=== PATIENT | male | born 1960 | race African-American/Black ===

== ENCOUNTER 2021-01-29 22:55 | Observation (INO) ==
[2021-01-30] MEDS ORDERED: ONDANSETRON 4 MG/2 ML VIAL IV STA (00:40)
[2021-01-30] MEDS ORDERED: ASPIRIN 325 MG TABLET PO STA (00:40)
[2021-01-30 01:42] LABS: Basophils # 0.1 10*3/uL (0.0-0.2); Basophils % 1.3 % (0.0-0.8); Eosinophils # 0.1 10*3/uL (0.0-0.87); Hematocrit 50.2 VOL% (42.0-52.0); Hemoglobin 16.9 GM/DL (14.0-18.0); Immature Granulocytes % 0.4 %; Immature Granulocytes Absolute 0.02 #; Lymphocytes # 1.2 10*3/uL (1.4-4.0); Lymphocytes % 26.7 % (21.2-54.2); Mean Corpuscular HGB Conc 33.7 GM/DL (32-36); Mean Corpuscular Volume 96.2 FL (87-102); Mean Platelet Volume 10.9 FL (9.6-12.0); Monocytes % 12.4 % (1.7-12.7); Neutrophils % 57.2 % (38.7-73.9); Platelet Count 160 T/CUMM (130-400); Red Blood Count 5.22 MC/CUMM (3.8-5.5); Red Cell Distribution Width 13.3 % (9.3-17.3); White Blood Count 4.5 T/CUMM (4-12)
[2021-01-30 02:00] LABS: INR 1.1; PT Patient Result 12.5 SECS (10.5-12.0); Partial Thromboplastin Time 29.4 SECS (23.9-33.8)
[2021-01-30 02:16] LABS: Bilirubin,Total 0.8 MG/DL (0.2-1.0); Calcium 8.4 MG/DL (8.5-10.1); Osmolality,Calculated 279.4 MOS/KG (273-304); Potassium 4.1 MMOL/L (3.5-5.1); Total Protein 8.1 G/DL (6.4-8.2)
[2021-01-30] MEDS ORDERED: ONDANSETRON 4 MG/2 ML VIAL IV PRN (03:24)
[2021-01-30] MEDS ORDERED: NICOTINE 21 MG/24 HR PATCH TRANSDERM PRN (03:24)
[2021-01-30] MEDS ORDERED: chlordiazePOXIDE 25 MG CAPSULE PO PRN (03:24)
[2021-01-30] MEDS ORDERED: GLUCAGON 1 MG VIAL IM PRN (03:24)
[2021-01-30] MEDS ORDERED: DEXTROSE 50% 25 GM/50 ML VIAL IV PRN (03:24)
[2021-01-30] MEDS ORDERED: diphenhydrAMINE CAP 25 MG CAPSULE PO PRN (03:24)
[2021-01-30] MEDS ORDERED: ACETAMINOPHEN 325 MG TABLET PO PRN (03:24)
[2021-01-30] MEDS ORDERED: ENOXAPARIN 40 MG/0.4 ML SYRINGE SUBCUT SCH (03:30)
[2021-01-30 03:55] LABS: Risk Ratio 1.83; VLDL CHOLESTEROL 33.4 MG/DL
[2021-01-30] MEDS ORDERED: PNEUMOCOCCAL VACCINE (23 VALENT) 0.5 ML VIAL IM ONE (05:21)
[2021-01-30 08:30] LABS: Bilirubin,Urine Negative (Negative); Blood, Urine Negative (Negative); Glucose,Urine (UA) Negative (Negative); Ketones,Urine Negative (Negative); Mucus,Urine Occasional /LPF (Occasional); Nitrite,Urine Negative (Negative); Protein,Urine Negative; RBC,Urine 1 /HPF (0-4); Urine Appearance CLEAR (Clear); Urine Color Yellow (Yellow); Urine Specific Gravity 1.019 (1.001-1.035); Urine Urobilinogen < 2.0 EU/DL (0.2-1.0)
[2021-01-30] MEDS: THIAMINE 100 MG TABLET PO SCH (09:06)
[2021-01-30] MEDS: ASPIRIN 325 MG TABLET PO SCH (09:06)
[2021-01-30] MEDS: MULTIVITAMIN (CENTRUM) TABLET PO SCH (09:06)
[2021-01-30 11:38] LABS: Barbiturates Screen,Urine Negative (Negative); Benzodiazepines Screen,Urine Negative (Negative); Cannabinoid Screen,Urine Negative (Negative); Opiate Screen,Urine Negative (Negative); Phencyclidine Screen,Urine Negative (Negative)
[2021-01-30] MEDS: hydrALAZINE 20 MG/1 ML VIAL IV PRN ×2 (16:06→21:09)
[2021-01-30] MEDS ORDERED: SIMVASTATIN 10 MG TABLET PO SCH (21:00)
[2021-01-31] MEDS: SODIUM CHLORIDE 0.9% 1,000 ML IV SCH ×2 (05:55→05:56)
[2021-01-31] MEDS: ASPIRIN 325 MG TABLET PO SCH (08:55)
[2021-01-31] MEDS: MULTIVITAMIN (CENTRUM) TABLET PO SCH (08:55)
[2021-01-31] MEDS: THIAMINE 100 MG TABLET PO SCH (08:55)
[2021-01-31] MEDS ORDERED: SACUBITRIL/VALSARTAN 49-51 MG TABLET PO SCH (09:00)
[2021-01-31] MEDS ORDERED: FUROSEMIDE 20 MG TABLET PO SCH (09:00)
[2021-01-31] MEDS ORDERED: carvediloL 25 MG TABLET PO SCH (09:00)
[2021-01-31 11:22] VITALS: BP 162/82
== END 2021-01-31 13:30 | disposition home or self-care (01) ==
LOC: N.EDINP 22:55 → N.ED 22:55 → SUATTDRO 01-30 03:24 → N.4E 01-30 04:58
PROVIDERS: ADMIT Hospitalist; ATTEND Family Medicine